=== PATIENT | female | born 1940 | race Caucasian/White ===

== ENCOUNTER 2017-05-31 10:00 | Emergency (ER) | payer MEDICARE, OTHER ==
[~2017-05-31] VITALS: Ht 160 cm; Wt 54.0 kg
[~2017-05-31 10:00] MED LIST: ALEN1TAB48 PO; ASPI1TAB57 PO; LEVO100T5 PO; LISI-515 PO; NORV2.5T PO; PRIL40CA PO; SERT-132 PO
[2017-05-31 10:09] VITALS: BP 178/85; PULSE 71; RESP 18; TEMP 97.8; O2SAT 100
[2017-05-31] MEDS ORDERED: SERT25TA83 PO (10:19)
[2017-05-31] MEDS ORDERED: OMEP40CA2 PO (10:19)
[2017-05-31] MEDS ORDERED: TEMA15CA PO (10:19)
[2017-05-31] MEDS ORDERED: LEVO75TA3 PO (10:19)
--- NOTE | 2017-05-31 10:48 | RADRPT ---
EXAM DATE/TIME: 05/31/2017 10:26 [place] COMPARISON: No previous studies available for comparison. INDICATIONS : Left knee pain post fall MEDICAL HISTORY : None. SURGICAL HISTORY : None. ENCOUNTER: Initial ACUITY: 2 days PAIN SCORE: 7/10 LOCATION: Left anterior knee FINDINGS: 4 view examination demonstrates diffuse osteopenia. There is advanced degenerative change in the lat eral compartment with narrowing of the joint space and prominent sclerosis on both sides of the joint . Minimal chondrocalcinosis in the region of the lateral meniscus. Moderate severity degenerative c hanges in the patellofemoral articulation. No fracture seen. There is distention of the suprapatell ar soft tissues measuring up to 3.2 cm, characteristic of a moderate size knee effusion. Within the superior aspect of the thickened suprapatellar soft tissues, there is a 6 mm rounded flocculent calci fication which may represent a loose body. CONCLUSION: 1. Large joint effusion. Possible calcified loose body in the suprapatella bursa. 2. Advanced arthropathy in the lateral and patellofemoral compartments. 3. No fracture seen. Gerber Beal MD on May 31, 2017 at 10:45 Board Certified Radiologist. This report was verified electronically.
--- NOTE | 2017-05-31 10:57 | PD ---
HPI Chief Complaint: Fall Time Seen by Provider: 10:16 Travel History International Travel<30 days: No Contact w/Intl Traveler<30days: No Traveled to known affect area: No History of Present Illness HPI 76 year old female here with left knee pain after she had a mechanical trip and fall last night. She denies head injury or loss of consciousness. She reports she fell onto a flexed knee. She agrees to the bridge of her nose on a nearby cabinet. No epistaxis or nasal bone pain. She is not anticoagulated. She reports the knee pain has steadily increased since injury last night prompting her visit today. Pain is worse with weightbearing and flexion of the knee and slightly relieved with rest. Symptom severity is moderate. She denies headache , visual changes, neck pain, chest pain, shortness breath, abdominal pain, paresthesia or weakness of the extremities PFSH Past Medical History Hx Anticoagulant Therapy: Yes (BABY ASA DAILY) Arthritis: Yes Depression: Yes Cardiovascular Problems: Yes (HTN, CHOL) High Cholesterol: Yes Chemotherapy: No Cerebrovascular Accident: No Diabetes: No Diminished Hearing: No GERD: Yes Hypertension: Yes Respiratory: No Immunizations Current: No Pneumonia: Yes Thyroid Disease: Yes Tetanus Vaccination: Unknown ?: Not Menopausal: Yes : 2 Para: 2 Past Surgical History Appendectomy: Yes Gynecologic Surgery: Yes (HYSTERECTOMY) Hysterectomy: Yes Other Surgery: Yes (LUMPECTOMY TESTED 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 BREAST CA.: LEFT BREAST) Social History Alcohol Use: No Tobacco Use: No (QUIT AGE 30) Substance Use: No Allergies-Medications (Allergen,Severity, Reaction): Coded Allergies: shellfish derived (Unverified Allergy, Severe, "Passed out", 05/31/17) prednisone (Unverified Allergy, Mild, SWELLING, 05/31/17) Reported Meds & Prescriptions Reported Meds & Active Scripts Active Reported Omeprazole 40 Mg Cap 40 Mg PO DAILY Temazepam 15 Mg Cap 15 Mg PO HS PRN Sertraline (Sertraline HCl) 25 Mg Tab 25 Mg PO DAILY Levothyroxine (Levothyroxine Sodium) 75 Mcg Tab 75 Mcg PO DAILY Alendronate (Alendronate Sodium) 70 Mg Tab 70 Mg PO Q7D Lisinopril 20 Mg Tab 20 Mg PO DAILY Aspirin 81 (Aspirin) 81 Mg Tabdr 81 Mg PO DAILY Norvasc (Amlodipine Besylate) 2.5 Mg Tab 2.5 Mg PO DAILY Review of Systems Except as stated in HPI: all other systems reviewed are Neg Physical Exam Narrative GENERAL: Alert and well-appearing 76-year-old female SKIN: Warm and dry. HEAD: Normocephalic. Atraumatic EYES:No injection or drainage. Ear/nose/throat: Superficial abrasion to the bridge of the nose. No deformity. No bony tenderness. No septal hematoma. No dried blood or discharge from the nares. NECK: Supple. No cervical spine tenderness CARDIOVASCULAR: Regular rate and rhythm. no chest wall tenderness RESPIRATORY: Breath sounds equal bilaterally. No accessory muscle use. GASTROINTESTINAL: Abdomen soft, non-tender, nondistended. MUSCULOSKELETAL: No cyanosis. Left knee: Tenderness to the anterior aspect of the left knee. Moderate sized joint effusion. The joint stable. Patient can flex and extend the knee. 2+ distal pulses. Normal sensation. Brisk cap refill. BACK: Nontender without obvious deformity. No CVA tenderness. Data Data Last Documented VS Vital Signs Date Time Temp Pulse Resp B/P (MAP) Pulse Ox O2 Delivery O2 Flow Rate FiO2 05/31/17 10:09 97.8 71 18 178/85 (116) 100 Orders Orders Knee, Complete (4vws) (05/31/17 ) ^ Knee Immobilizer (05/31/17 11:05) Ed Discharge Order (05/31/17 11:06) MDM Medical Decision Making Medical Screen Exam Complete: Yes Emergency Medical Condition: Yes Differential Diagnosis Fracture versus sprain versus contusion Narrative Course 76-year-old female with left knee pain after mechanical fall last night. The extremity is neurovascularly intact. X-ray reveal no fracture but moderate to large sized joint effusion. Patient we put a knee immobilizer and instructed to follow-up with PCP or or so this week. She was offered pain medication and declined. She was advised ice and elevate the extremity. Diagnosis Primary Impression: Joint effusion of knee Qualified Codes: M25.462 - Effusion, left knee Referrals: Orthopedist Primary Care Physician Additional Instructions: Knee immobilizer as directed. Ice and elevate the extremity. Follow-up with primary doctor or orthopedic doctor this week for reevaluation. Take Tylenol as needed for pain Scripts Tramadol (Ultram) 50 Mg Tab 50 MG PO Q6H Y for PAIN, #12 TAB 0 Refills Prov: Delmis Richard 05/31/17 Disposition: 01 DISCHARGE HOME Condition: Stable Delmis Richard May 31, 2017 10:57
[2017-05-31] MEDS ORDERED: TRAM50 PO (11:07)
== END 2017-05-31 11:53 | disposition home or self-care (01) ==
LOC: PHED 10:00
DX: M25.462 Effusion, left knee (principal); S00.31XA Abrasion of nose, initial encounter; W01.0XXA Fall on same level from slipping, tripping and stumbling without subsequent striking against object, initial encounter; E78.00 Pure hypercholesterolemia, unspecified; I10 Essential (primary) hypertension; F32.9 Major depressive disorder, single episode, unspecified; K21.9 Gastro-esophageal reflux disease without esophagitis; M19.90 Unspecified osteoarthritis, unspecified site; Z87.891 Personal history of nicotine dependence
CPT/HCPCS: 73564; 99283

== ENCOUNTER 2018-05-21 16:50 | Inpatient (IN) ==
[2018-05-21] MEDS ORDERED: guaiFENesin/Dextromethorphan 200 MG/20 MG 10 ML UDC PO ONE (17:14)
--- NOTE | 2018-05-21 17:21 | ED ---
HPI General Chief complaint: Shortness of Breath/Dyspnea Stated complaint: sore throat since saturday Time Seen by Provider: 05/21/18 17:04 Source: patient and family Mode of arrival: ambulatory Limitations: no limitations History of Present Illness HPI narrative: 77-year-old female here for evaluation of cough, sore throat, generalized malaise. Symptoms started 4 days ago and have been progressively worsening. She was seen by her primary care physician yesterday who prescribed her a Z-Bk, however the patient had an adverse reaction to the first dose this medication, and the antibiotic was switched to Ceftin. Patient reports that her symptoms are not improving. She believes she may have a fever. Sore throat is moderate to severe. She is able to swallow liquids, however it is painful to do so. Cough is productive of yellowish sputum. No hemoptysis. Patient has dyspnea on exertion. She did experience some pain throughout her chest from coughing, currently she has no pain. No abdominal pain. She has had some loose bowel movements as well as some nausea and vomiting. She took 2 doses of Reglan earlier today which seemed to have significantly helped her nausea. She denies any known history of cardiopulmonary disease. Related Data Allergies Allergy/AdvReac Type Severity Reaction Status Date / Time shellfish derived Allergy Severe "Passed Verified 05/21/18 16:57 out" prednisone Allergy Mild SWELLING Verified 05/21/18 16:57 Review of Systems ROS: all other systems reviewed are negative [facility] Social History Social History Substance History: No History of Abuse Smoking Status: Never smoker How Often Do You Have a Drink Containing Alcohol: Never Recent Travel in [facility] within the Last 8 Weeks: No Recent Out of Country Travel within the Last 8 Weeks: No Exam Narrative Exam Narrative: GENERAL: Well-developed, well-nourished, pleasant, awake, alert , no apparent distress, occasional deep sounding cough. SKIN: Focused skin assessment warm/dry. No rash. HEAD: Atraumatic. Normocephalic. EYES: Pupils equal and round. No scleral icterus. No injection or drainage. ENT: No nasal bleeding or discharge. Mucous membranes pink and moist. Pharynx with moderate erythema without exudates. Uvula is midline. Slightly hoarse phonation. No drooling or stridor. Bilateral tympanic membranes and external auditory canals are normal. NECK: Trachea midline. No JVD. No nuchal rigidity. CARDIOVASCULAR: Regular rate and rhythm. RESPIRATORY: No accessory muscle use. Coarse breath sounds at bilateral bases. No rales or wheezes. GASTROINTESTINAL: Abdomen soft, non-tender, nondistended. MUSCULOSKELETAL: No obvious deformities. No clubbing. No cyanosis. No edema. NEUROLOGICAL: Awake and alert. No obvious cranial nerve deficits. Motor grossly within normal limits. Normal speech. PSYCHIATRIC: Appropriate mood and affect; insight and judgment normal. Course Initial Documented Vital Signs Temperature 99.3 F 05/21/18 16:52 Pulse Rate 118 H 05/21/18 16:52 Respiratory Rate 20 05/21/18 16:52 Blood Pressure 198/97 H 05/21/18 16:52 Pulse Oximetry 97 05/21/18 16:52 Last Documented Vital Signs Temperature 99.3 F 05/21/18 16:52 Pulse Rate 122 H 05/21/18 18:15 Respiratory Rate 20 05/21/18 18:15 Blood Pressure 156/63 H 05/21/18 18:15 Pulse Oximetry 100 05/21/18 18:15 Medical Decision Making [facility] Narrative Medical decision making narrative: Vital signs reviewed. The patient is slightly hypotensive and is tachycardic with a heart rate in the 120s, temp of 99.3 F, O2 saturation of 100% on room air. CBC is remarkable for WBC 11.1, neutrophils 89%, lymphocytes 4.2% CMP is remarkable for sodium 122, chloride 90 Chest x-ray: No acute cardiopulmonary disease. Patient and the patient's family are made aware of all findings. She will be started on normal saline as per hour as to not replace her sodium too rapidly. Patient has had very little to eat and drink over the last 4 days because of her sore throat. Influenza test is still pending. The patient was started on azithromycin yesterday, however had an adverse reaction to this medication, and was therefore switched to Ceftin by her primary care physician today. She has already taken 1 dose of this medication, and took a second dose while in the emergency department. Patient has a flulike illness. She was given DuoNeb treatments with significant improvement in her respiratory status. She endorses an allergy to steroids and prednisone reporting facial swelling. She will be admitted for further treatment and evaluation of influenza-like illness , hyponatremia. Case discussed with hospitalist Dr. Hoyos who will admit the patient to his service Medical Screen Exam Complete: Yes Emergency Medical Condition: Yes Differential Diagnosis Differential Diagnosis: Influenza, bronchitis, pneumonia, pulmonary edema, pleural effusion, PE less likely Lab Data Result diagrams: 05/21/18 17:35 05/21/18 17:35 Lab Results 05/21/18 05/21/18 05/21/18 Range/Units 17:35 17:35 17:35 CBC w Diff Auto diff final WBC 11.1 H (4.0-11.0) th/mm3 RBC 4.00 (4.00-5.30) mil/mm3 Hgb 11.9 (11.6-15.3) gm/dL Hct 35.2 (35.0-46.0) % MCV 87.9 (80.0-100.0) fL MCH 29.9 (27.0-34.0) pg MCHC 33.9 (32.0-36.0) % RDW 13.6 (11.6-17.2) % Plt Count 338 (150-450) th/mm3 MPV 7.3 (7.0-11.0) fL Neut % (Auto) 88.9 H (16.0-70.0) % Lymph % (Auto) 4.2 L (9.0-44.0) % [place] % (Auto) 5.7 (0.0-8.0) % Eos % (Auto) 0.0 (0.0-4.0) % Baso % (Auto) 1.2 (0.0-2.0) % Neut # (Auto) 9.9 H (1.8-7.7) th/mm3 Lymph # (Auto) 0.5 L (1.0-4.8) th/mm3 [place] # (Auto) 0.6 (0.0-0.9) th/mm3 Eos # (Auto) 0.0 (0.0-0.4) th/mm3 Baso # (Auto) 0.1 (0.0-0.2) th/mm3 WBC Differential . Differential Comment . Sodium 122 L* (136-145) meq/L Potassium 4.0 (3.5-5.1) meq/L Chloride 90 L (98-107) meq/L Carbon Dioxide 25.7 (21.0-32.0) meq/L Anion Gap 6 (5-15) meq/L BUN 10 (7-18) mg/dL Creatinine 0.97 (0.50-1.00) mg/dL Estimated GFR 56 L (>89) mL/min Random Glucose 131 H (74-106) mg/dL Calcium 8.0 L (8.5-10.1) mg/dL Total Bilirubin 0.4 (0.2-1.0) mg/dL AST 16 (15-37) U/L ALT 16 (10-53) U/L Alkaline Phosphatase 72 (45-117) U/L B-Natriuretic Peptide 71 (0-100) pg/mL Total Protein 6.9 (6.4-8.2) g/dL Albumin 3.9 (3.4-5.0) g/dL Imaging Data Radiologist's impression: Chest X-Ray 05/21/18 17:12 CONCLUSION: No acute cardiopulmonary disease Discharge Plan Discharge Disposition Patient Disposition: ED Admit(ED Internal Use Only) Discharge Condition Condition: Stable Discharge Details Diagnosis: Hyponatremia, URI (upper respiratory infection) Physicians Team ED Provider: Adryan Lloyd Primary Care Provider: Jamia Rooney Status ED Status: With Doctor
--- NOTE | 2018-05-21 17:24 | XR ---
EXAM DATE: 05/21/2018 5:22 PM EST AGE/SEX: 77 years / Female INDICATIONS: Cough, shortness of breath. CLINICAL DATA: This is the patient's initial encounter. Patient reports that signs and symptoms have been present for 2 days and indicates a pain score of 5/10. MEDICAL/SURGICAL HISTORY: None. None. COMPARISON: No prior exams available for comparison. FINDINGS: A single AP view of the chest demonstrates the lungs to be symmetrically aerated without evidence of mass, infiltrate or effusion. The cardiomediastinal contours are unremarkable. Osseous structures a re intact. CONCLUSION: No acute cardiopulmonary disease Electronically signed by: Luca Bermudez MD Board Certified Radiologist 05/21/2018 5:23 PM EST
[2018-05-21] MEDS ORDERED: Acetaminophen 325 MG Tablet PO ONE (17:29)
[2018-05-21 18:09] LABS: Baso # (Auto) 0.1 th/mm3 (0.0-0.2); Baso % (Auto) 1.2 % (0.0-2.0); Hematocrit 35.2 % (35.0-46.0); Hemoglobin 11.9 gm/dL (11.6-15.3); Lymph # (Auto) 0.5 th/mm3 (1.0-4.8); Lymph % (Auto) 4.2 % (9.0-44.0); Mean Corpuscular HGB Conc 33.9 % (32.0-36.0); Mean Corpuscular Hemoglobin 29.9 pg (27.0-34.0); Mean Corpuscular Volume 87.9 fL (80.0-100.0); Mean Platelet Volume 7.3 fL (7.0-11.0); Mono # (Auto) 0.6 th/mm3 (0.0-0.9); Mono % (Auto) 5.7 % (0.0-8.0); Neut # (Auto) 9.9 th/mm3 (1.8-7.7); Neut % (Auto) 88.9 % (16.0-70.0); Platelet Count 338 th/mm3 (150-450); Red Cell Distribution Width 13.6 % (11.6-17.2); White Blood Count 11.1 th/mm3 (4.0-11.0)
[2018-05-21 18:11] LABS: Alanine Aminotransferase 16 U/L (10-53); Albumin 3.9 g/dL (3.4-5.0); Alkaline Phosphatase 72 U/L (45-117); Anion Gap 6 meq/L (5-15); Aspartate Aminotransferase 16 U/L (15-37); Blood Urea Nitrogen 10 mg/dL (7-18); Carbon Dioxide 25.7 meq/L (21.0-32.0); Chloride 90 meq/L (98-107); Glomerular Filtration Rate 56 mL/min (>89); Glucose,Random 131 mg/dL (74-106); Total Protein 6.9 g/dL (6.4-8.2)
[2018-05-21 18:14] LABS: Sodium 122 meq/L (136-145)
[2018-05-21] MEDS: Sod Chloride 0.9% Inj 1,000 ML IV.CONT SCH (19:30)
[2018-05-22 06:51] LABS: Baso # (Auto) 0.1 th/mm3 (0.0-0.2); Baso % (Auto) 1.1 % (0.0-2.0); Hematocrit 37.9 % (35.0-46.0); Hemoglobin 12.6 gm/dL (11.6-15.3); Lymph # (Auto) 0.3 th/mm3 (1.0-4.8); Lymph % (Auto) 2.7 % (9.0-44.0); Mean Corpuscular HGB Conc 33.2 % (32.0-36.0); Mean Corpuscular Hemoglobin 29.7 pg (27.0-34.0); Mean Corpuscular Volume 89.6 fL (80.0-100.0); Mean Platelet Volume 7.1 fL (7.0-11.0); Mono # (Auto) 0.6 th/mm3 (0.0-0.9); Mono % (Auto) 4.7 % (0.0-8.0); Neut # (Auto) 11.5 th/mm3 (1.8-7.7); Neut % (Auto) 91.5 % (16.0-70.0); Platelet Count 337 th/mm3 (150-450); Red Blood Count 4.23 mil/mm3 (4.00-5.30); Red Cell Distribution Width 13.6 % (11.6-17.2); White Blood Count 12.5 th/mm3 (4.0-11.0)
[2018-05-22 07:43] LABS: Alanine Aminotransferase 14 U/L (10-53); Albumin 3.5 g/dL (3.4-5.0); Alkaline Phosphatase 69 U/L (45-117); Anion Gap 10 meq/L (5-15); Aspartate Aminotransferase 15 U/L (15-37); Blood Urea Nitrogen 10 mg/dL (7-18); Calcium 7.7 mg/dL (8.5-10.1); Carbon Dioxide 22.4 meq/L (21.0-32.0); Chloride 91 meq/L (98-107); Glomerular Filtration Rate 58 mL/min (>89); Glucose,Random 126 mg/dL (74-106); Potassium 4.1 meq/L (3.5-5.1); Total Protein 6.8 g/dL (6.4-8.2)
[2018-05-22 07:49] LABS: Sodium 123 meq/L (136-145)
[2018-05-22] MEDS: Lactobacillus Acidophilus/L. Spores Tablet PO SCH ×3 (09:09→17:19)
[2018-05-22] MEDS: Sod Chloride 0.9% Inj 1,000 ML IV.CONT SCH ×2 (09:10→21:53)
[2018-05-22] MEDS: Acetaminophen 325 MG Tablet PO PRN (09:45)
--- NOTE | 2018-05-22 12:42 | P.HPIM ---
History of Present Illness Primary Care Physician: Jamia Rooney MD Chief Complaint: Difficulty breathing, upper respiratory infection History of Present Illness: 77-year-old female with known history of hypertension, previous history of hyponatremia who presented to the hospital for evaluation of upper respiratory symptoms. Patient has had upper respiratory infection with cough, congestion, discoid breathing. She went to her prior medical doctor's office and prescribed antibiotic and did not get any better so they change the antibiotic since she just started taking them which were Ceftin. However during the night it was indicated the patient was having difficulty in breathing so the family brought her to the hospital for evaluation. Upon workup patient was found to have significant hyponatremia and it was recommended by the ER physician that the patient be admitted for hyponatremia. Patient denies any weakness, fatigue, neurological changes, paresthesia. Patient has had previous hospitalization for hyponatremia. She does not follow any fluid restriction. Patient states that she drinks several bottle pineda daily with coffee and tea throughout the day. Inpatient Certification Inpatient Certification: I certify that the inpatient services were ordered in accordance with Medicare regulations governing the order. This includes certification that hospital inpatient services are reasonable and necessary and in the case of services not specified as inpatient-only under 42 CFR 419.22(n), that they are appropriately provided as inpatient services in accordance to with the 2-midnight benchmark under 43 CFR 412.3(e) Estimated Total Length of Stay (Days): 3 Plans for Post Hospital Care: Home Review of Systems Review of Systems: all other systems reviewed are negative Respiratory: Reports chest congestion, Reports cough and Reports dyspnea PMFSH Medical History Medical History Chronic kidney disease (Acute) History of hysterectomy (Acute) Hypertension (Acute) Hyponatremia (Acute) Hypothyroidism (Acute) Surgical History Surgical History Status post breast lumpectomy (Acute) Family History Family History Mother Family history of coronary artery disease Social History Social History Substance History: No History of Abuse Second Hand Smoke Exposure: No Smoking Status: Former smoker Tobacco Type: Cigarettes Number of Pack-Years (if former smoker): 10 Smoking End Date: Patient quit smoking 50 years ago How Often Do You Have a Drink Containing Alcohol: Never Recent Travel in [place] within the Last 8 Weeks: No Recent Out of Country Travel within the Last 8 Weeks: No Immunization History Tetanus Immunization: >5 Years Hx Influenza Vaccine This Season: Yes Medications and Allergies Allergies Allergy/AdvReac Type Severity Reaction Status Date / Time shellfish derived Allergy Severe "Passed Verified 05/21/18 16:57 out" prednisone Allergy Mild SWELLING Verified 05/21/18 16:57 Active Medications: Active Medications Acetaminophen (Tylenol) 650 mg PO Q4H PRN PRN Reason: Temp > 100.4 Last Admin: 05/22/18 09:45 Dose: 650 mg Al Hydroxide/Mg Hydroxide (Milk Of Magnmelida Liq) 30 ml PO Q12H PRN PRN Reason: Mild Constipation Benzocaine/Menthol (Cepacol Max Strength) 1 lozenge BUCCAL Q2H PRN PRN Reason: SORE THROAT Sodium Chloride (Ns Inj) 1,000 mls @ 80 mls/hr IV.CONT .[id number] [facility] Last Admin: 05/22/18 09:10 Dose: 80 mls/hr Ceftriaxone Sodium 1,000 mg/ (Sodium Chloride) 100 mls @ 200 mls/hr IV.SIG Q24H [facility] Last Infusion: 05/21/18 23:55 Dose: Infused Lactobacillus Acidophilus (Lactinex) 1 tab PO TID [facility] Last Admin: 05/22/18 12:35 Dose: 1 tab Ondansetron HCl (Zofran Inj) 4 mg IV.PUSH Q6H PRN PRN Reason: NAUSEA OR VOMITING Prochlorperazine Edisylate (Compazine Inj) 5 mg IV.PUSH Q4H PRN PRN Reason: Nausea And Vomiting Last Admin: 05/22/18 06:41 Dose: 5 mg Sodium Chloride (Ns Flush) 2 ml IV.FLUSH BID [facility] Last Admin: 05/22/18 09:10 Dose: Not Given Sodium Chloride (Ns Flush) 2 ml IV.FLUSH PRN PRN PRN Reason: FLUSH AFTER USING IV ACCESS Tramadol HCl (Ultram) 50 mg PO Q6H PRN PRN Reason: Pain 3 to 10 Last Admin: 05/22/18 06:41 Dose: 50 mg Physical Exam Vital signs: Vital Signs 05/21/18 16:52 05/21/18 17:12 05/21/18 17:25 Temperature 99.3 F Pulse Rate 118 H 123 H 97 H Respiratory Rate 20 16 Blood Pressure 198/97 H Pulse Oximetry 97 100 05/21/18 18:15 05/21/18 19:50 02/13/19 21:34 Temperature 98.4 F 99.0 F Pulse Rate 122 H 115 H 95 H Respiratory Rate 20 18 16 Blood Pressure 156/63 H 111/72 135/65 Pulse Oximetry 100 97 95 05/22/18 00:00 05/22/18 00:05 05/22/18 08:00 Temperature 98.8 F 100.8 F H Pulse Rate 112 H 97 H 98 H Respiratory Rate 16 16 Blood Pressure 133/69 130/71 Pulse Oximetry 97 93 L 05/22/18 12:00 Temperature 98.9 F Pulse Rate 102 H Respiratory Rate 17 Blood Pressure 129/69 Pulse Oximetry 93 L Intake & Output 05/21/18 05/22/18 05/22/18 18:59 06:59 18:59 Intake Total 130 / 130 1000 / 1000 Balance 130 / 130 1000 / 1000 Weight 54.6 kg 54.6 kg Intake: IV 100 / 100 1000 / 1000 NS Inj 1,000 ML @ 80 mls/hr IV. 1000 / 1000 CONT .[id number] [facility] Rx#: [id number] Rocephin Inj 1,000 MG In NS Inj 100 / 100 100 ML @ 200 mls/hr IV.SIG Q24H [facility] Rx#:[id number] Oral 30 / 30 Narrative: GENERAL: Well-developed, well-nourished, in no acute distress. alert and orientated HEENT: Head is normocephalic without any lesions or masses noted. Facial features are symmetric. Eyes: Pupils equal round reactive to light. Extraocular muscles are intact. Conjunctivae were clear. Oropharyngeal: Pharynx without any erythema edema. Tongue is midline without deviation. Buccal mucosa is moist without any masses or lesions NECK: Supple without any masses. Trachea midline no deviation. No JVD, no bruits are appreciated CARDIAC: Regular rhythm, regular rate. S1/S2 are heard. No murmurs gallops or rubs. LUNGS: Rhonchi heard bilaterally. No wheeze, or rales. No use of accessory muscles on inspiration or expiration. ABDOMEN: Soft, nontender. Nondistended. Bowel sounds heard in all 4 quadrants. No organomegaly or masses. Negative rebound, negative guarding EXTREMITIES: No edema, pulses are equal bilaterally. No cyanosis or clubbing NEUROLOGY: Mood and affect appear appropriate. Cranial nerves II through XII grossly intact. Muscle strength 5/5 in upper and lower extremities bilaterally. Deep tendon reflexes are 2+ in upper and lower extremities bilaterally. Results Labs CBC & Chem 7: 05/22/18 06:25 05/22/18 06:25 Imaging Impressions Chest X-Ray 05/21/18 17:12 CONCLUSION: No acute cardiopulmonary disease Caprini VTE Risk Assessment Caprini VTE Risk Assessment: Moderate/High Risk (score >= 2) Caprini Risk Assessment Model: Point Value = 1 Point Value = 2 Point Value = 3 Point Value = 5 Age 41-60 Minor surgery BMI > 25 kg/m2 Swollen legs Varicose veins or History of unexplained or recurrent spontaneous Oral contraceptives or hormone replacement Sepsis (< 1 month) Serious lung disease, including pneumonia (< 1 month) Abnormal pulmonary function Acute myocardial infarction Congestive heart failure (< 1 month) History of inflammatory bowel disease Medical patient at bed rest Age 61-74 Arthroscopic surgery Major open surgery (> 45 min) Laparoscopic surgery (> 45 min) Malignancy Confined to bed (> 72 hours) Immobilizing plaster cast Central venous access Age >= 75 History of VTE Family history of VTE Factor V Leiden Prothrombin [id number] Lupus anticoagulant Anticardiolipin antibodies Elevated serum homocysteine Heparin-induced thrombocytopenia Other congenital or acquired thrombophilia Stroke (< 1 month) Elective arthroplasty Hip, pelvis, or leg fracture Acute spinal cord injury (< 1 month) Prophylaxis Regimen: Total Risk Factor Score Risk Level Prophylaxis Regimen 0-1 Low Early ambulation 2 Moderate Order ONE of the following: *Sequential Compression Device (SCD) *Heparin 5000 units SQ BID 3-4 Higher Order ONE of the following medications: *Heparin 5000 units SQ TID *Enoxaparin/Lovenox 40 mg SQ daily (WT < 150 kg, CrCl > 30 mL/min) *Enoxaparin/Lovenox 30 mg SQ daily (WT < 150 kg, CrCl > 10-29 mL/min) *Enoxaparin/Lovenox 30 mg SQ BID (WT < 150 kg, CrCl > 30 mL/min) AND/OR *Sequential Compression Device (SCD) 5 or more Highest Order ONE of the following medications: *Heparin 5000 units SQ TID (Preferred with Epidurals) *Enoxaparin/Lovenox 40 mg SQ daily (WT < 150 kg, CrCl > 30 mL/min) *Enoxaparin/Lovenox 30 mg SQ daily (WT < 150 kg, CrCl > 10-29 mL/min) *Enoxaparin/Lovenox 30 mg SQ BID (WT < 150 kg, CrCl > 30 mL/min) AND *Sequential Compression Device (SCD) Assessment and Plan Plan Hyponatremia, recurrent Check osmolality studies Patient had previous admission in 2015 for hyponatremia which was secondary to HCTZ Continue monitor sodium level Chest x-ray did not indicate any abnormality Check TSH Fluid restriction 1500 cc Upper respiratory infection Continue Rocephin, start Zithromax Start Mucinex 600 mg twice daily Start Acapella Obtain sputum culture Hypertension Nurse to obtain accurate home medication list to resume medications Hypothyroidism Check TSH Resume replacement therapy when accurate home medication list has been updated DVT prevention Subcutaneous heparin Discussed Condition With: Patient, daughter, nursing staff, Dr. Hoyos H&P: Quality VTE Deep Vein Thrombosis/Pulmonary Embolism Present on Admission: No
[2018-05-22] MEDS: Azithromycin 250 MG Tablet PO SCH (14:28)
[2018-05-22] MEDS: guaiFENesin 600 MG ER Tablet PO SCH ×2 (14:28→20:35)
[2018-05-22] MEDS: Heparin - SQ 10,000 UNITS/ML Vial SQ SCH ×2 (14:29→20:33)
[2018-05-22 15:03] LABS: Thyroid Stimulating Hormone 1.7 uIU/mL (0.358-3.740)
[2018-05-22] MEDS: Benzocaine/Menthol 15 MG/3.6 MG SF Lozenge BUCCAL PRN (21:52)
[2018-05-23] MEDS: Acetaminophen 325 MG Tablet PO PRN (04:22)
[2018-05-23 06:53] LABS: Calcium 7.7 mg/dL (8.5-10.1); Carbon Dioxide 22.7 meq/L (21.0-32.0)
[2018-05-23] MEDS: Levothyroxine 88 MCG Tablet PO SCH (07:48)
[2018-05-23] MEDS: Heparin - SQ 10,000 UNITS/ML Vial SQ SCH ×2 (09:22→20:33)
[2018-05-23] MEDS: guaiFENesin 600 MG ER Tablet PO SCH ×2 (09:22→20:33)
[2018-05-23] MEDS: Lactobacillus Acidophilus/L. Spores Tablet PO SCH ×3 (09:22→18:22)
[2018-05-23] MEDS: Azithromycin 250 MG Tablet PO SCH (09:23)
[2018-05-23] MEDS: Lisinopril 20 MG Tablet PO SCH ×2 (09:23→20:33)
[2018-05-23] MEDS: Sertraline 50 MG Tablet PO SCH (09:23)
--- NOTE | 2018-05-23 10:41 | P.PNIM ---
Subjective Interval history: 77-year-old female seen examined today for follow-up on hyponatremia. Patient is upper respiratory infection is caused her to have laryngitis at this time. However indicates she is doing better. She is starting to expectorate some phlegm. Sodium without any significant improvement. This was discussed with the patient. Vital signs are stable. Patient remains afebrile. Physical Exam Vital signs: Vital Signs 05/22/18 12:00 05/22/18 15:58 05/22/18 16:00 Temperature 98.9 F 98.8 F Pulse Rate 102 H 79 105 H Respiratory Rate 17 17 Blood Pressure 129/69 127/92 H Pulse Oximetry 93 L 97 05/22/18 16:57 05/22/18 20:00 05/22/18 20:05 Temperature 97.7 F Pulse Rate 100 H 86 105 H Respiratory Rate 16 18 18 Blood Pressure 157/73 H Pulse Oximetry 97 98 98 05/23/18 00:00 05/23/18 04:00 05/23/18 07:36 Temperature 97.3 F L 97.9 F Pulse Rate 111 H 113 H 101 H Respiratory Rate 18 18 18 Blood Pressure 114/67 128/72 Pulse Oximetry 94 L 99 98 05/23/18 08:00 Temperature 96.9 F L Pulse Rate 129 H Respiratory Rate 17 Blood Pressure 148/84 H Pulse Oximetry 99 Intake & Output 05/22/18 05/23/18 05/23/18 18:59 06:59 18:59 Intake Total 2080 / 2080 1100 / 1100 800 / 800 Balance 2080 / 2080 1100 / 1100 800 / 800 Weight 53.2 kg Intake: IV 1000 / 1000 1100 / 1100 800 / 800 NS Inj 1,000 ML @ 80 mls/hr IV. 1000 / 1000 1000 / 1000 800 / 800 CONT .[id number] FRANCINE Rx#: [id number] Rocephin Inj 1,000 MG In NS Inj 100 / 100 100 ML @ 200 mls/hr IV.SIG Q24H FRANCINE Rx#:[id number] Oral 1080 / 1080 Other: # Voids 3 3 Date of Last Bowel Movement 05/23/18 # Bowel Movements 0 3 Narrative: GENERAL: Well-developed, well-nourished, in no acute distress. alert and orientated HEENT: Head is normocephalic without any lesions or masses noted. Facial features are symmetric. Eyes: Extraocular muscles are intact. Conjunctivae were clear. NECK: Supple without any masses. Trachea midline no deviation. No JVD, CARDIAC: Regular rhythm, regular rate. S1/S2 are heard. No murmurs gallops or rubs. LUNGS: Rhonchi heard bilaterally. No wheeze, or rales. No use of accessory muscles on inspiration or expiration. ABDOMEN: Soft, nontender. Nondistended. Bowel sounds heard in all 4 quadrants. No organomegaly or masses. Negative rebound, negative guarding EXTREMITIES: No edema, pulses are equal bilaterally. No cyanosis or clubbing NEUROLOGY: Mood and affect appear appropriate. Cranial nerves II through XII grossly intact. Moving all extremities, speech is clear Results Labs CBC & Chem 7: 05/22/18 06:25 05/23/18 06:08 Labs: Microbiology 05/22/18 14:15 Sputum - Expectorated Sputum Gram Stain - Final 05/21/18 17:35 Blood - Peripheral Aerobic Blood Culture - Preliminary No growth in 1 day 05/21/18 17:35 Blood - Peripheral Anaerobic Blood Culture - Preliminary No growth in 1 day 05/21/18 17:30 Blood - Peripheral Aerobic Blood Culture - Preliminary No growth in 1 day 05/21/18 17:30 Blood - Peripheral Anaerobic Blood Culture - Preliminary No growth in 1 day Assessment and Plan Plan Hyponatremia, recurrent Patient with low serum osmolality with elevated urine osmolality and urine sodium Patient had previous admission in 2016 for hyponatremia which was secondary to HCTZ Continue monitor sodium level Chest x-ray did not indicate any abnormality TSH was normal Continue fluid restriction 1500 cc Add sodium chloride 1 g daily Upper respiratory infection Continue Rocephin, Zithromax Continue Mucinex 600 mg twice daily Continue Acapella Awaiting sputum culture Hypertension Home medications were continued Hypothyroidism TSH was normal Replacement therapy was continued DVT prevention Subcutaneous heparin Discussed Condition With: Patient, nursing staff, Dr. Hoyos Discharge Planning: Anticipate discharge planning once sodium greater than 130. Hopefully within the next 24-48 hours. Progress Note: Quality VTE Deep Vein Thrombosis/Pulmonary Embolism Present on Admission: No
[2018-05-23] MEDS ORDERED: guaiFENesin/Codeine Syrup 200 MG/20 MG 10 ML UDC PO PRN (10:45)
[2018-05-23] MEDS: Sodium Chloride 1 GM Tablet PO SCH (12:08)
[2018-05-23] MEDS: Benzocaine/Menthol 15 MG/3.6 MG SF Lozenge BUCCAL PRN (14:32)
[2018-05-23] MEDS ORDERED: Temazepam 15 MG Capsule PO SCH (21:00)
[2018-05-24] MEDS: Levothyroxine 88 MCG Tablet PO SCH (05:08)
[2018-05-24] MEDS: Lactobacillus Acidophilus/L. Spores Tablet PO SCH (08:47)
[2018-05-24] MEDS: Lisinopril 20 MG Tablet PO SCH (08:47)
[2018-05-24] MEDS: Azithromycin 250 MG Tablet PO SCH (08:47)
[2018-05-24] MEDS: Heparin - SQ 10,000 UNITS/ML Vial SQ SCH (08:47)
[2018-05-24] MEDS: Sodium Chloride 1 GM Tablet PO SCH (08:48)
[2018-05-24] MEDS: Sertraline 50 MG Tablet PO SCH (08:48)
[2018-05-24] MEDS: guaiFENesin 600 MG ER Tablet PO SCH (08:48)
--- NOTE | 2018-05-24 08:52 | P.DS ---
DS: Providers Date of admission: 05/21/18 19:01 Primary care physician: Jamia Rooney MD Consults: 05/22/18 15:36 HUB Only Consult Order Routine Consulting Provider: Jonn Lunsford 05/23/18 09:32 HUB Only Consult Order Routine Consulting Provider: Jonn Lunsford Anticipated date of discharge: 05/24/18 Brief History from admission: 77-year-old female with known history of hypertension, previous history of hyponatremia who presented to the hospital for evaluation of upper respiratory symptoms. Patient has had upper respiratory infection with cough, congestion, discoid breathing. She went to her prior medical doctor's office and prescribed antibiotic and did not get any better so they change the antibiotic since she just started taking them which were Ceftin. However during the night it was indicated the patient was having difficulty in breathing so the family brought her to the hospital for evaluation. Upon workup patient was found to have significant hyponatremia and it was recommended by the ER physician that the patient be admitted for hyponatremia. Patient denies any weakness, fatigue, neurological changes, paresthesia. Patient has had previous hospitalization for hyponatremia. She does not follow any fluid restriction. Patient states that she drinks several bottle pineda daily with coffee and tea throughout the day. DS: Diagnosis Discharge Diagnosis (1) Hyponatremia: Status: Acute (2) URI (upper respiratory infection): Status: Acute DS: Summary 77-year-old female who originally presented to the hospital for evaluation of upper respiratory symptoms with cough, congestion. Patient is been treated in outpatient setting with multiple antibiotics and is not improved. Upon workup in emergency department patient was not found to have any pneumonia. Did have upper respiratory infection. Possible viral etiology. However workup also indicated life-threatening hyponatremia. Patient does have history of hyponatremia which was secondary to HCTZ in the past. However that was discontinued. Patient was not following dietary restrictions with fluid restriction in outpatient setting. Patient was admitted to hospital with fluid restriction. Osmolality studies were performed which did indicate a low serum osmolality with an elevated urine osmolality and urine sodium indicative of SIADH. Patient was monitored on a daily basis. Fluid restriction, starting of sodium chloride 1 g daily. Patient sodium improved on a daily basis until now it is 130. Patient clinically stable this time. Patient feels very well and is requesting to go home. Care was discussed with the patient extensively about fluid restriction and follow-up with her primary medical doctor. Patient should have BMP done in 1 week and follow-up with her primary medical doctor in 2 weeks. We will plan discharge accordingly. Hyponatremia, recurrent Patient with low serum osmolality with elevated urine osmolality and urine sodium Patient had previous admission in 2016 for hyponatremia which was secondary to HCTZ Continue monitor sodium level Chest x-ray did not indicate any abnormality TSH was normal Continue fluid restriction 1500 cc Continue sodium chloride 1 g daily Upper respiratory infection Continue Rocephin, Zithromax, patient may resume Ceftin upon discharge. Patient given prescription for Zithromax Continue Mucinex 600 mg twice daily, patient be given prescription for Mucinex Continue Acapella Sputum culture indicating normal gian for 24 hours Hypertension Home medications were continued Hypothyroidism TSH was normal Replacement therapy was continued Time Spent with Patient Total time spent providing and/or coordinating discharge services: Greater than 30 minutes Status at Discharge Functional status at discharge: independent ambulation Overall status at discharge: patient is back to baseline Quality: VTE Deep Vein Thrombosis/Pulmonary Embolism Present on Admission: No Exam Narrative Exam Narrative: GENERAL: Well-developed, well-nourished, in no acute distress. alert and orientated HEENT: Head is normocephalic without any lesions or masses noted. Facial features are symmetric. Eyes: Extraocular muscles are intact. Conjunctivae were clear. NECK: Supple without any masses. Trachea midline no deviation. No JVD, CARDIAC: Regular rhythm, regular rate. S1/S2 are heard. No murmurs gallops or rubs. LUNGS: Rhonchi heard bilaterally. No wheeze, or rales. No use of accessory muscles on inspiration or expiration. ABDOMEN: Soft, nontender. Nondistended. Bowel sounds heard in all 4 quadrants. No organomegaly or masses. Negative rebound, negative guarding EXTREMITIES: No edema, pulses are equal bilaterally. No cyanosis or clubbing NEUROLOGY: Mood and affect appear appropriate. Cranial nerves II through XII grossly intact. Moving all extremities, speech is clear Results Labs on day of discharge: Labs from last 24 hours 05/24/18 05/23/18 06:10 18:12 Sodium 130 L 128 L Preliminary micro results at discharge 05/22/18 14:15 Sputum Culture - Preliminary Sputum - Expectorated Sputum Moderate growth normal respiratory gian at 24 hours 05/21/18 17:35 Aerobic Blood Culture - Preliminary Blood - Peripheral No growth in 2 days Anaerobic Blood Culture - Preliminary No growth in 2 days 05/21/18 17:30 Aerobic Blood Culture - Preliminary Blood - Peripheral No growth in 2 days Anaerobic Blood Culture - Preliminary No growth in 2 days Impressions ITS Impressions Chest X-Ray 05/21/18 17:12 CONCLUSION: No acute cardiopulmonary disease Additional Comments Discussed with patient, nursing staff, Dr. Hoyos Discharge Plan Discharge Disposition Patient Disposition: 01 Discharge Home Discharge Condition Condition: Stable Discharge Order Discharge Orders: Discharge Order (Routine); Ordered 05/24/18 Ordered By: Hugh Irby Discharge Details Anticipated Discharge Date: 05/24/18 Physicians Team Primary Care Provider: Jamia Rooney Attending Provider: Luis Miguel Hoyos Other Providers: Jonn Lunsford Rxs /Orders / Referrals /Forms Prescriptions: New azithromycin 250 mg Tablet 500 mg PO DAILY Qty: 3 RF: 0 sodium chloride 1 gram Tablet 1 gm PO DAILY Qty: 30 RF: 0 guaifenesin [Mucinex] 600 mg Tablet Extended Release 12hr 600 mg PO BID Qty: 10 RF: 0 Continue levothyroxine 88 mcg Tablet 88 mcg PO DAILY RF: 0 sertraline 50 mg Tablet 50 mg PO DAILY RF: 0 lisinopril 20 mg Tablet 20 mg PO BID RF: 0 omeprazole 40 mg Capsule,Delayed Release(Dr/Ec) 40 mg PO DAILY RF: 0 temazepam 15 mg Capsule 15 mg PO HS RF: 0 cefuroxime axetil 500 mg Tablet 500 mg PO Q12H RF: 0 Ambulatory Orders / Order Sets / DME: Basic Metabolic Panel (Routine) Timeframe: 1 Week Location: [facility] Ordered By: Hugh Irby Referrals: Jamia Rooney MD [Primary Care Provider] - See Instructions (Please call for follow up appointment within (2 weeks of being discharged.)) Discharge Interventions Interventions: Discharge Planning - Case Management Last Done: 05/22/18 09:57 Status ED Status: Left Department
== END 2018-05-24 10:35 | disposition home or self-care (01) | DRG 645 ==
LOC: PHED 16:50 → PHEDA 19:01 → PH3 20:45
PROVIDERS: ADMIT Hospitalist; ATTEND Hospitalist
DX: Z87.891 Personal history of nicotine dependence; I12.9 Hypertensive chronic kidney disease with stage 1 through stage 4 chronic kidney disease, or unspecified chronic kidney disease; N18.9 Chronic kidney disease, unspecified; E22.2 Syndrome of inappropriate secretion of antidiuretic hormone; J04.0 Acute laryngitis; E03.9 Hypothyroidism, unspecified
CPT/HCPCS: 71010; 71045; 80048; 80053; 83520; 83880; 83930; 83935; 84295; 84300; 84443; 85025; 87040; 87070; 87205; 87275; 87276; 87804; 90774; 94640; 94664; 94665; 94668; 96374; 99285; C8952; J0696; J0780; J1644; J2405; J7030